=== PATIENT | male | born 1980 | race Caucasian/White ===

== ENCOUNTER → 2016-06-20 | Outpatient (REF) | payer BC | LOC: M WUC 16:17 | PROVIDERS: ATTEND Physician Assistant | DX: R30.0 Dysuria (principal) ==

== ENCOUNTER 2017-04-02 21:49 | Emergency (ER) | payer BC ==
[2017-04-02] MEDS: ONDANSETRON 4 MG ORAL DISINTEGRATING TAB (S0181) PO (23:24)
== END 2017-04-02 23:30 | disposition home or self-care (01) ==
LOC: M ED 21:49
DX: B34.9 Viral infection, unspecified (principal); F17.210 Nicotine dependence, cigarettes, uncomplicated
CPT/HCPCS: 87804

== ENCOUNTER 2017-10-09 09:14 | Emergency (ER) | payer BC | END 2017-10-09 09:45 | disposition home or self-care (01) | LOC: M ED 09:14 | DX: K04.7 Periapical abscess without sinus (principal); K02.9 Dental caries, unspecified; F17.210 Nicotine dependence, cigarettes, uncomplicated | CPT/HCPCS: 99282 ==

== ENCOUNTER → 2018-05-14 | Outpatient (REF) | payer BC ==
[~2018-05-14] MED LIST: AUGM875T28 PO; IBUP-1022 PO; NORCOTAB PO; ZOFR4TAB14 PO
[2018-05-14 16:36] LABS: INFLUENZA A AMPLIFICATION NEGATIVE (NEGATIVE); INFLUENZA B AMPLIFICATION NEGATIVE (NEGATIVE)
== END ==
LOC: M LAB REF 15:33
PROVIDERS: ATTEND Physician Assistant
DX: J11.1 Influenza due to unidentified influenza virus with other respiratory manifestations (principal)

== ENCOUNTER 2018-07-24 17:50 | Emergency (ER) | payer OTHER, BC ==
[~2018-07-24] VITALS: Ht 177.8 cm; Wt 36.2 kg
[~2018-07-24 17:50] MED LIST changes: +HYDR-3715 PO; -NORCOTAB PO
--- NOTE | 2018-07-24 19:04 | REP ---
RIGHT SHOULDER, THREE VIEWS: HISTORY: Injury. There is no acute fracture or dislocation. The joint spaces are normal in appearance. IMPRESSION:There is no acute fracture or dislocation. Electronically Signed by Morteza Quintana MD 07/24/2018 07:08 P
[2018-07-24 19:07] VITALS: BP 125/75
== END 2018-07-24 19:12 | disposition home or self-care (01) ==
LOC: M ED 17:50
DX: S46.011A Strain of muscle(s) and tendon(s) of the rotator cuff of right shoulder, initial encounter (principal); X50.9XXA Other and unspecified overexertion or strenuous movements or postures, initial encounter; Y92.89 Other specified places as the place of occurrence of the external cause; Y99.0 Civilian activity done for income or pay; K21.9 Gastro-esophageal reflux disease without esophagitis; F17.210 Nicotine dependence, cigarettes, uncomplicated

== ENCOUNTER 2021-01-24 04:24 | Emergency (ER) | payer BC, OTHER ==
[~2021-01-24] VITALS: Ht 180.3 cm; Wt 86.4 kg
--- OUTSIDE RECORDS SUMMARY | 2021-01-24 04:31 | CCD ---
Author Author [facility] Organization [facility] Address Unknown Phone Unavailable Care Team Providers Care Blood Donor Recruiter Name Role Phone Denisse Menezes NP Unavailable Unavailable Giovanny Newton MD Unavailable Unavailable Giovanny Newton MD Unavailable Unavailable Giovanny Newton MD Unavailable Unavailable Giovanny Newton MD Unavailable Unavailable Giovanny Newton MD Unavailable Unavailable Giovanny Newton MD Unavailable Unavailable Giovanny Newton MD Unavailable Unavailable Giovanny Newton MD Unavailable Unavailable Giovanny Newton MD Unavailable Unavailable Giovanny Newton MD Unavailable Unavailable Giovanny Newton MD Unavailable Unavailable Giovanny Newton MD Unavailable Unavailable Giovanny Newton MD Unavailable Unavailable Giovanny Newton MD Unavailable Unavailable Giovanny Newton MD Unavailable Unavailable Giovanny Newton MD Unavailable Unavailable Giovanny Newton MD Unavailable Unavailable Giovanny Newton MD Unavailable Unavailable Giovanny Newton MD Unavailable Unavailable Giovanny Newton MD Unavailable Unavailable Giovanny Newton MD Unavailable Unavailable Giovanny Newton MD Unavailable Unavailable Giovanny Newton MD Unavailable Unavailable Giovanny Newton MD Unavailable Unavailable Giovanny Newton MD Unavailable Unavailable Re-disclosure Warning The records that you are about to access may contain information from federally-assisted alcohol or drug abuse programs. If such information is present, then the following federally mandated warning applies: This information has been disclosed to you from records protected by federal confidentiality rules (42 CFR part 2). The federal rules prohibit you from making any further disclosure of this information unless further disclosure is expressly permitted by the written consent of the person to whom it pertains or as otherwise permitted by 42 CFR part 2. A general authorization for the release of medical or other information is NOT sufficient for this purpose. The Federal rules restrict any use of the information to criminally investigate or prosecute any alcohol or drug abuse patient.The records that you are about to access may contain highly sensitive health information, the redisclosure of which is protected by Article 27-F of the [facility] Public Health law. If you continue you may have access to information: Regarding HIV / AIDS; Provided by facilities licensed or operated by the [facility] Office of Mental Health; or Provided by the [facility] Office for People With Developmental Disabilities. If such information is present, then the following [facility] mandated warning applies: This information has been disclosed to you from confidential records which are protected by state law. State law prohibits you from making any further disclosure of this information without the specific written consent of the person to whom it pertains, or as otherwise permitted by law. Any unauthorized further disclosure in violation of state law may result in a fine or senior living sentence or both. A general authorization for the release of medical or other information is NOT sufficient authorization for further disc losure. Family History Family Member Name Family Member Gender Family Member Status Date o f Status Description Data Source(s) Unknown Male Problem [facility] ([facility]) Unknown Unknown [facility] Encounters Encounter Providers Location Date Indications Data Source(s ) Outpatient Attender: Denisse Menezes NP 01/09 12:50:21 PM EST - 01/20/2021 03:21:42 PM EST [facility] ([facility] ) Outpatient Attender: Rika Newton MD 0 09/20/2020 02:56:38 PM EDT - 09/20/2020 03:37:48 PM EDT [facility] Medications Medication Brand Name Start Date Product Form Dose Route Admi nistrative Instructions Pharmacy Instructions Status Indications Reaction Description Data Source(s) doxycycline hyclate 100 MG Oral Capsule DOXYCYCLINE HYCLATE 01/20/2021 12:00:00 AM EST capsule 14 TAKE ONE CAPSULE BY MOUTH TW ICE A DAY FOR 7 DAYS TAKE ONE CAPSULE BY MOUTH TWICE A DAY FOR 7 DAYS SOLD: 01/20/2021 [facility] Insurance Providers Payer name Policy type / Coverage type Policy ID Covered green party ID Covered green party's relationship to velasquez Policy Velasquez Plan Information BCBS/[employer] Commercial [id number] Self [id number] BCBS/Excellus Commercial [id number] Self FIRST [place] [id number] SP [id number] [employer] emp [id number] Employee [id number] [employer] emp [id number] Employee [id number] [employer] emp [id number] Employee [id number] Excellus Blue Cross and Blue Shield - [place] Blue Cross/B lue Shield [id number] Self [id number] Excellus [employer]kk[employer] [id number] Self V [id number] EXCELLUS TrekkSoftY CriticalArc Pty BS [id number] 18 [id number] [place]BS [place] P[place] 302/307 [id number] SP [id number] D Excellus BCBS Dental P [id number] EXCELLUS BCBS P [id number] S VYS [id number] EXCELLUS BCBS P [id number] S VYS [id number] Self Pay O [id number] O [id number] Medicaid Dental O [id number] S [id number] D Excellus BCBS Dental P [id number] S [id number] D Delta Dental [facility] S [id number] S [id number] [place]BS [place] PPO 302/307 [id number] SP [id number] FIRST [place] RISK PETER [id number] SP [id number] OTHER WORKERS COMPENSATION UNK SP UNK MEDFOCUS P [id number] S [id number] RENZI BROTHERS SP CL [id number] CL [id number] BCBS OF [place] 306/806 [id number] SP [id number] GINI Chatterjee [id number] S [id number] EXCELLUS BCBS B [id number] S [id number] [id number] [facility] O [id number] S [id number] GINI Chatterjee UNAVAILABLE [id number] S UNAVAIL ABLE [facility] [id number] SP [id number] Problems, Conditions, and Diagnoses No Information Surgeries/Procedures No Information Results No Information Social History No Information
[2021-01-24] MEDS ORDERED: IBUP-1114 PO (07:28)
[2021-01-24] MEDS ORDERED: DOXY100C3 (07:28)
[2021-01-24] MEDS ORDERED: CRAN400C PO (07:28)
--- OUTSIDE RECORDS SUMMARY | 2021-01-24 07:36 | CCD ---
Author Author [facility] Organization [facility] Address Unknown Phone Unavailable Care Team Providers Care Gang Worker Name Role Phone Denisse Menezes NP Unavailable [...] is protected by Article 27-F of the [facility] Public Health law. If you continue you may have access to information: Regarding HIV / AIDS; Provided by facilities licensed or operated by the [facility] Office of Mental Health; or Provided by the [facility] Office for People With Developmental Disabilities. If such information is present, then the following [facility] mandated warning applies: This information has [...] may result in a fine or senior care sentence or both. A general authorization for the release of medical or other information is NOT sufficient authorization for further disc losure. Family History Family Member Name Family Member Gender Family Member Status Date o f Status Description Data Source(s) Unknown Male Problem [facility] ([facility]) Unknown Unknown [facility] Encounters Encounter Providers Location Date Indications Data Source(s ) Outpatient Attender: Denisse Menezes NP 01/09 12:50:21 PM EST - 01/20/2021 03:21:42 PM EST [facility] ([facility] ) Outpatient Attender: Rika Newton MD 0 09/20/2020 02:56:38 PM EDT - 09/20/2020 03:37:48 PM EDT [facility] Medications Medication Brand Name Start Date Product Form Dose Route Admi nistrative Instructions Pharmacy Instructions Status Indications Reaction Description Data Source(s) doxycycline hyclate 100 MG Oral Capsule DOXYCYCLINE HYCLATE 01/20/2021 12:00:00 AM EST capsule 14 TAKE ONE CAPSULE BY MOUTH TW ICE A DAY FOR 7 DAYS TAKE ONE CAPSULE BY MOUTH TWICE A DAY FOR 7 DAYS SOLD: 01/20/2021 [facility] Insurance Providers Payer name Policy type / Coverage type Policy ID Covered constitution party ID Covered constitution party's relationship to velasquez Policy Velasquez Plan Information BCBS/[employer] Commercial [id number] Self [id number] BCBS/Excellus Commercial [id number] Self FIRST [place] [id number] SP [id number] [employer] emp [id number] Employee [id number] [employer] emp [id number] Employee [id number] [employer] emp [id number] Employee [id number] Excellus Blue Cross and Blue Shield - [place] Blue Cross/B e Shield [id number] Self [id number] [facility] [id number] SP [id number] Excellus Domin-8 Enterprise [employer] [id number] Self V [id number] EXCELLUS Domin-8 Enterprise SolutionsY [facility] BS [id number] 18 [id number] [place]BS [place] PPO 302/307 [id number] SP [id number] D Excellus BCBS Dental P [id number] S [id number] EXCELLUS BCBS P [id number] S VYS [id number] EXCELLUS BCBS P [id number] S VYS [id number] Self Pay O [id number] O [id number] Medicaid Dental O [id number] S [id number] D Excellus BCBS Dental P [id number] S [id number] D Delta Dental [facility] [place] S [id number] S [id number] [place]BS [place] PPO 302/307 [id number] SP [id number] FIRST [place] RISK PETER [id number] SP [id number] OTHER WORKERS COMPENSATION UNK SP UNK MEDFOCUS P [id number] S [id number] BCBS [place] 306/806 [id number] SP [id number] CL [id number] CL [id number] RENGT BROTHERS SP BCBS OF [place] 306/806 [id number] SP [id number] GINI Chatterjee [id number] S [id number] EXCELLUS BCBS B [id number] S [id number] O [id number] S [id number] GINI Chatterjee UNAVAILABLE [id number] S UNAVAIL ABLE Problems, Conditions, and Diagnoses No Information Surgeries/Procedures No Information Results No Information Social History No Information
[2021-01-24 08:18] LABS: GC DNA AMPLIFICATION NEGATIVE (NEGATIVE)
--- NOTE | 2021-01-24 10:14 | REP ---
INDICATION: dysuria, frequency, weak stream. COMPARISON: None. TECHNIQUE: Real-time transvesical sonographic evaluation of the urinary bladder with Doppler FINDINGS: The pre void urinary bladder volume calculation is 493.7 cc and the postvoid urinary bladder volume calculation is 45.5 cc. This renders a 9.2% postvoid residual. Doppler of the urinary bladder shows uro jet phenomena at the UV junction bilaterally. There is no evidence of a gross mass or other urinary bladder abnormality. IMPRESSION: As above <Electronically signed by Misbah Jarrell > 01/24/21 1018
[2021-01-24] MEDS ORDERED: BACT800T5 PO (11:07)
[2021-01-24] MEDS ORDERED: PYRI1TAB5 PO (11:07)
[2021-01-24 11:15] VITALS: BP 128/70
== END 2021-01-24 11:15 | disposition home or self-care (01) ==
LOC: M ED 04:24
DX: N34.2 Other urethritis (principal)

== ENCOUNTER 2021-10-23 15:11 | Emergency (ER) | payer BC, OTHER ==
[~2021-10-23] VITALS: Ht 180.3 cm; Wt 93.3 kg
[~2021-10-23 15:11] MED LIST changes: +BACT800T5 PO; +CRAN400C PO; +DOXY100C3; +IBUP-1114 PO; +PYRI1TAB5 PO
[2021-10-23 16:52] VITALS: BP 144/82
== END 2021-10-23 16:55 | disposition home or self-care (01) ==
LOC: M ED 15:11
DX: S92.354A Nondisplaced fracture of fifth metatarsal bone, right foot, initial encounter for closed fracture (principal); W22.09XA Striking against other stationary object, initial encounter; Y99.0 Civilian activity done for income or pay

== ENCOUNTER → 2021-11-21 | Outpatient (CLI) | payer OTHER | LOC: M SOG 10:12 | PROVIDERS: ATTEND Physician Assistant | DX: S92.355A Nondisplaced fracture of fifth metatarsal bone, left foot, initial encounter for closed fracture (principal); W18.30XA Fall on same level, unspecified, initial encounter; Y92.009 Unspecified place in unspecified non-institutional (private) residence as the place of occurrence of the external cause ==

== ENCOUNTER → 2022-03-21 | Outpatient (REF) | payer BC | LOC: M LAB REF 21:13 | PROVIDERS: ATTEND Physician Assistant | DX: J02.9 Acute pharyngitis, unspecified (principal) ==

== ENCOUNTER → 2023-01-15 | Outpatient (CLI) | payer BC | LOC: M SOG 15:21 | PROVIDERS: ATTEND Physician Assistant | DX: S92.355D Nondisplaced fracture of fifth metatarsal bone, left foot, subsequent encounter for fracture with routine healing (principal); W18.30XA Fall on same level, unspecified, initial encounter ==